=== PATIENT | female | born 2000 | race Native Hawaiian/Other Pacific Islander ===

== ENCOUNTER 2022-06-07 15:17 | Emergency (ER) | payer OTHER ==
[~2022-06-07] VITALS: Ht 167.6 cm; Wt 117.0 kg
[2022-06-07 15:26] VITALS: TEMP 97.2
[2022-06-07 16:31] LABS: POTASSIUM 4.9 mmol/L (3.6-5.2)
[2022-06-07 16:44] LABS: PLATELET COUNT 290 K/uL (152-353)
[2022-06-07 17:24] VITALS: BP 110/86
== END 2022-06-07 17:33 | disposition home or self-care (01) ==
LOC: ED 15:17
PROVIDERS: Emergency Medicine
DX: K80.20 Calculus of gallbladder without cholecystitis without obstruction (principal)
CPT/HCPCS: 80053; 82150; 83690; 85027; 96372; 99283; J2175; J2405